=== PATIENT | male | born 1995 | race African-American/Black ===

== ENCOUNTER 2019-02-01 15:44 | Emergency (ER) | payer OTHER ==
[~2019-02-01] VITALS: Ht 190.5 cm; Wt 76.7 kg
[2019-02-01] MEDS ORDERED: IV NORMAL SALINE 1,000ML 1,000 ML IV ONE ×2 (16:00→17:00)
--- NOTE | 2019-02-01 16:10 | PHYS DOC ---
Past History Past Medical History: No Pertinent History Past Surgical History: No Surgical History Smoking: Non-smoker Alcohol Use: None Drug Use: None Adult General Chief Complaint Chief Complaint: MUSCLE SPASM/CRAMP HPI HPI Patient is a 23-year-old male presents with diffuse body cramping. This started today. 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 No nausea or vomiting. No change in mental status. The trainers at the college attempted to provide a full water bath for him which he did not tolerate so he presented to the emergency department. Nothing seems to make the symptoms better or worse. Patient is from [facility] but has been in the [place] more than 3 months. Symptoms are mild to moderate in intensity.[] Review of Systems Review of Systems Constitutional: Denies fever or chills [] Eyes: Denies change in visual acuity, redness, or eye pain [] HENT: Denies nasal congestion or sore throat [] Respiratory: Denies cough or shortness of breath [] Cardiovascular: No chest pain or palpitations[] GI: Denies abdominal pain, nausea, vomiting, bloody stools or diarrhea [] : Denies dysuria or hematuria [] Musculoskeletal: Denies back pain, see history of present illness[] Integument: Denies rash or skin lesions [] Neurologic: Denies headache, focal weakness or sensory changes [] Endocrine: Denies polyuria or polydipsia [] All other systems were reviewed and found to be within normal limits, except as documented in this note. Current Medications Current Medications Current Medications Medications (Trade) Dose Ordered Sig/Erika Start Time Stop Time Status Last Admin Dose Admin Sodium Chloride 1,000 ml @ 1,000 mls/hr 1X ONCE 02/01/19 16:00 02/01/19 16:59 Allergies Allergies Allergies Coded Allergies Type Severity Reaction Last Updated Verified No Known Drug Allergies 02/01/19 No Physical Exam Physical Exam Constitutional: Well developed, well nourished, no acute distress, non-toxic appearance. [] HENT: Normocephalic, atraumatic, bilateral external ears normal, oropharynx moist, no oral exudates, nose normal. [] Eyes: PERRLA, EOMI, conjunctiva normal, no discharge. [] Neck: Normal range of motion, no tenderness, supple, no stridor. [] Cardiovascular:Heart rate regular rhythm, no murmur [] Lungs & Thorax: Bilateral breath sounds clear to auscultation [] Abdomen: Bowel sounds normal, soft, no tenderness, no masses, no pulsatile masses. [] Skin: Warm, dry, no erythema, no rash. [] Back: No tenderness, no CVA tenderness. [] Extremities: No tenderness, no cyanosis, no clubbing, ROM intact, no edema. [] Neurologic: Alert and oriented X 3, normal motor function, normal sensory function, no focal deficits noted. [] Psychologic: Affect normal, judgement normal, mood normal. [] EKG EKG [] Radiology/Procedures Radiology/Procedures [] Course & Med Decision Making Course & Med Decision Making Pertinent Labs and Imaging studies reviewed. (See chart for details) ED course: Patient arrived, was placed in bed, and tolerated exam well. IV fluids were started. He was feeling better after the first liter, however noting his creatinine being elevated and the specific gravity of his urine being elevated, second liter of IV fluids were started. He was drinking electrolyte replacement solution while in the emergency department. Medical decision making: Believe this to be exertional heat cramps with some renal insufficiency. Patient reports that he doesn't like to drink during the workout times because it irritates his stomach. There is no evidence of rhabdomyolysis given that his K is less than 5 times per limited of normal, being only slightly more than twice upper limit of normal. His creatinine was improving on repeat testing.[] Dragon Disclaimer Dragon Disclaimer This electronic medical record was generated, in whole or in part, using a voice recognition dictation system. Departure Departure: Impression: Primary Impression: Heat cramp, initial encounter Additional Impressions: Renal insufficiency Dehydration Disposition: 01 HOME, SELF-CARE Condition: IMPROVED Referrals: PCP,NO (PCP) Patient Instructions: Dehydration, Adult, Heat-Related Illness Additional Instructions: Drink plenty of fluids. By the time you feel thirsty, your body is needing at least a pint of fluid. When exercising in the heat, and for over an hour, use an electrolyte containing solutions such as Gatorade, Powerade, or Pedialyte. Fo llow-up with your regular doctor in 2 days. If you do not have regular doctor a list of local clinics will be provided for you. Return to the ER if unable to tolerate liquids, worsening cramping, or any other concerns. It is my recommendation that you take tomorrow off from soccer practice. Problem Qualifiers MAXIMUS CHAIDEZ DO Feb 01, 2019 16:10
[2019-02-01 16:25] VITALS: BP 126/89
[2019-02-01 16:33] LABS: BASO # 0.1 x10^3/uL (0.0-0.2); BASO % 1 % (0-3); EOS % 0 % (0-3); HEMATOCRIT 48.1 % (39.0-53.0); HEMOGLOBIN 16.1 g/dL (13.0-17.5); LYMPH # 1.7 x10^3/uL (1.0-4.8); LYMPH % 12 % (24-48); MEAN CORPUSCULAR HEMOGLOBIN 29 pg (25-35); MEAN CORPUSCULAR HGB CONC 34 g/dL (31-37); MEAN CORPUSCULAR VOLUME 88 fL (79-100); MONO # 0.8 x10^3/uL (0.0-1.1); MONO % 6 % (0-9); NEUT # 11.6 x10^3uL (1.8-7.7); NEUT % 82 % (31-73); PLATELET COUNT 231 x10^3/uL (140-400); RED BLOOD COUNT 5.48 x10^6/uL (4.30-5.70); RED CELL DISTRIBUTION WIDTH 13.2 % (11.5-14.5); WHITE BLOOD COUNT 14.3 x10^3/uL (4.0-11.0)
[2019-02-01 16:39] LABS: CLARITY,URINE HAZY; COLOR,URINE AMBER
[2019-02-01 16:40] LABS: BILIRUBIN,URINE NEG (NEG); GLUCOSE,URINE NEG (NEG); NITRITE,URINE NEG (NEG); UROBILINOGEN,URINE 0.2 mg/dL (0.2 mg/dL)
[2019-02-01 16:48] LABS: BACTERIA,URINE FEW /HPF (0-FEW); HYALINE CASTS, URINE FEW /HPF; SQUAMOUS EPITHELIAL CELL,UR OCC /LPF; WAXY CASTS,URINE OCC /HPF
[2019-02-01 16:49] LABS: ALBUMIN 4.8 g/dL (3.4-5.0); CALCIUM 10.8 mg/dL (8.5-10.1); CREATININE 2.1 mg/dL (0.7-1.3); GFR 46.8; MAGNESIUM 2.2 mg/dL (1.8-2.4); TOTAL BILIRUBIN 0.5 mg/dL (0.2-1.0); TOTAL PROTEIN 9.6 g/dL (6.4-8.2)
[2019-02-01 17:57] LABS: CREATININE 1.8 mg/dL (0.7-1.3); GFR 55.9
== END 2019-02-01 18:39 | disposition home or self-care (01) ==
LOC: ER 15:44
DX: T67.2XXA Heat cramp, initial encounter (principal); N28.9 Disorder of kidney and ureter, unspecified; E86.0 Dehydration; X58.XXXA Exposure to other specified factors, initial encounter; Y93.89 Activity, other specified; Y92.89 Other specified places as the place of occurrence of the external cause; Y99.8 Other external cause status
CPT/HCPCS: 36415; 80053; 81001; 82550; 82565; 83735; 85025; 96360; 99284-25; J7030